=== PATIENT | female | born 1970 | race Caucasian/White ===

== ENCOUNTER 2021-11-01 22:15 | Emergency (ER) | payer MEDICARE, OTHER ==
[~2021-11-01 22:15] MED LIST: NORCO 5-325 TA1 EACH PO
[2021-11-02] MEDS ORDERED: AMOX TR-K CLV1 EAC4 PO (01:10)
[2021-11-02] MEDS ORDERED: NORCO 5-325 TA1 EACH PO (01:10)
== END 2021-11-02 01:28 | disposition home or self-care (01) ==
LOC: FER 22:15
DX: S81.852A Open bite, left lower leg, initial encounter (principal); J45.909 Unspecified asthma, uncomplicated; Z23 Encounter for immunization; Z88.1 Allergy status to other antibiotic agents; Z88.5 Allergy status to narcotic agent; Z79.899 Other long term (current) drug therapy; W55.51XA Bitten by raccoon, initial encounter; Y92.009 Unspecified place in unspecified non-institutional (private) residence as the place of occurrence of the external cause
CPT/HCPCS: 90375; 90471; 90675; 90715; 96372